=== PATIENT | male | born 1940 | race Caucasian/White ===

== ENCOUNTER 2020-07-18 15:23 | Emergency (ER) | payer MEDICARE, OTHER, SELFPAY ==
[2020-07-18 15:36] VITALS: BP 145/96; PULSE 63; RESP 17; TEMP 36.8; O2SAT 97
--- NOTE | 2020-07-18 16:08 | ED.EPISTAXIS ---
HPI - Epistaxis General Chief complaint: Epistaxis Stated complaint: NOSEBLEED Time Seen by Provider: 07/18/20 16:08 Source: patient Mode of arrival: wheelchair Limitations: no limitations History of Present Illness HPI Narrative: The patient is a 77 yo M with history of HTN, COPD, hyperlipidemia, prior CVA and previous hx of pulmonary embolism, who presents for evaluation of nosebleed. Patient states he has weekly nosebleeds that usually resolve after a few minutes, but today the nosebleed has lasted for several hours. He denies trauma to the face. He has been inserting some tissues with good improvement in the nosebleed but states when they removed it recurs. He denies lightheadedness or dizziness. He is on anticoagulation secondary to his history of pulmonary embolisms which is likely what causes his nosebleeds. He denies any vomiting. No difficulty breathing. He has never had follow-up with ENT for this. Related Data Allergies Allergy/AdvReac Type Severity Reaction Status Date / Time meperidine Allergy Severe SEVERE N/V Unverified 05/05/18 07:07 WHILE IN HOSP AND AFTER DISCHARGE AT HOME S/P GB KIP Inhibitors Allergy Unknown Verified 03/02/18 09:01 hydrocodone Allergy Unknown Verified 03/02/18 09:01 codeine AdvReac Mild N/V Unverified 05/05/18 07:07 Review of Systems Review of Systems: Narrative: CONSTITUTIONAL: Denies fever CARDIOVASCULAR: Denies chest pain HEENT: Epistaxis, denies rhinorrhea RESPIRATORY: Denies cough or dyspnea. GASTROINTESTINAL: Denies abdominal pain SKIN: Denies rash MUSCULOSKELETAL: Denies back pain NEUROLOGIC: Denies headache [facility] Social History Social History (Updated 07/18/20 @ 17:01 by Itzel Shultz MD) Alcohol intake: never Substance use: never Living arrangements: with family Gender identity (if verbalized by the patient): Male Exam Narrative: Exam Narrative: GENERAL: Awake, alert, conversant HEAD: Normocephalic, atraumatic. EYES: PERRLA and EOMI. ENT: Dried blood at the right nares, mild oozing, current epistaxis. No rhinorrhea. Mucous membranes moist. NECK: Supple. CHEST: No respiratory distress, breathing even and non labored HEART: Regular rate, sinus rhythm ABDOMEN:Non distended, non tender EXTREMITIES: Paralysis, RUE and RLE. No edema. SKIN: Pale, warm, dry, no rash. NEURO: Right sided paralysis. At baseline. Chronic atrophy/contractures lower extremities. Alert and oriented x3 Course Vital Signs Vital signs: Vital Signs Temperature 36.8 C 07/18/20 15:36 Pulse Rate 63 07/18/20 15:36 Respiratory Rate 17 07/18/20 15:36 Blood Pressure 145/96 H 07/18/20 15:36 Pulse Oximetry 97 07/18/20 15:36 Temperature 36.8 C 07/18/20 15:36 Pulse Rate 60 07/18/20 17:00 Respiratory Rate 16 07/18/20 17:00 Blood Pressure 137/87 07/18/20 17:00 Pulse Oximetry 100 07/18/20 17:00 Procedures Epistaxis Control right: Epistaxis Control Date: 07/18/20 Epistaxis Control Time: 18:21 Time Out Performed: Yes Nose Prepped With: oxymetazoline Direct Inspection: yes Clots Removed by: blowing nose and manually Cautery Used: none Device Inserted: nasal tampon Device Size: 5 Patient Tolerated Procedure: well and no complications MDM - Epistaxis MDM Narrative Medical decision making narrative: Patient presenting for evaluation of right nasal epistaxis, consistent with anterior bleed. No significant hemorrhage or evidence of posterior bleed. Patient had improvement with Afrin and a nasal clamp, but cannot tolerate the nasal clamp and after shared decision-making was open to Rhino Rocket placement. A 5.5 cm anterior Rhino Rocket was placed into the right naris with good improvement in bleeding. Patient tolerated this well. Dr. Portillo will be able to follow-up with the patient outpatient; he was contacted in the ED. No antibiotics prescribed per Dr. Portillo.
[2020-07-18 17:00] VITALS: BP 137/87; PULSE 60; RESP 16; O2SAT 100
[2020-07-18] MEDS: OXYMETAZOLINE HCL 0.05% NAS 15 ML BTL (*BKC) 1 SPRAY NASAL (17:15)
[2020-07-18 17:39] LABS: Basophils Percent Auto 0.4 % (0.2-1.2); Eosinophils Absolute Auto 0.2 K/mm3 (0-0.3); Eosinophils Percent Auto 1.7 % (0-4.4); Hematocrit 45.1 % (42.0-52.0); Hemoglobin 14.6 g/dL (14.0-18.0); Immature Granulocyte Absolute 0.08 K/mm3 (0.00-0.031); Immature Granulocyte Percent A 0.8 % (0-0.5); Lymphocytes Absolute Auto 1.17 K/mm3 (0.9-3.2); Lymphocytes Percent Auto 11.6 % (18.3-44.2); Mean Corpuscular HGB Conc 32.4 g/dl (32-36); Mean Corpuscular Hemoglobin 30.8 pg (26-34); Mean Corpuscular Volume 95.1 fl (80-100); Mean Platelet Volume 9.1 fl (7.4-10.4); Monocytes Absolute Auto 0.6 K/mm3 (0.1-0.6); Monocytes Percent Auto 5.7 % (2.6-8.5); Neutrophils Percent Auto 79.8 % (45.5-73.1); Platelet Count Result 184 k/mm3 (150-375); Red Blood Count 4.74 M/mm3 (4.6-6.20); Red Cell Distribution Width 13.2 % (11.5-14.5); White Blood Count 10.1 K/mm3 (4.5-10.0)
== END 2020-07-18 18:37 | disposition home or self-care (01) ==
PROVIDERS: Emergency Provider Emergency Medicine; PCP Family Medicine
DX: R04.0 Epistaxis (principal); I10 Essential (primary) hypertension; E78.5 Hyperlipidemia, unspecified; Z86.711 Personal history of pulmonary embolism; Z96.7 Presence of other bone and tendon implants; Z86.73 Personal history of transient ischemic attack (TIA), and cerebral infarction without residual deficits
CPT/HCPCS: 30901; 36415; 85025; 99283; A9270

== ENCOUNTER 2020-07-21 10:32 | Inpatient (IN) | payer MEDICARE, OTHER, SELFPAY ==
[2020-07-21] VITALS (10 sets, daily range): BP systolic 118–145; BP diastolic 67–78; PULSE 68–77; RESP 13–20; TEMP 36.3–36.6; O2SAT 95–99; BMI 26.4
--- NOTE | ~2020-07-21 | CT_ITS ---
EXAMINATION: CT abdomen pelvis wo con DATE: 07/21/2020 11:28 INDICATION: Left abdominal pain. TECHNIQUE: Computed tomography (CT) of the abdomen and pelvis was performed without intravenous contr ast. Automated exposure control and iterative reconstruction technique were employed. The dose-length product was 1265.78 mGy-cm. COMPARISON: CT abdomen and pelvis 09/28/2012, chest CT 04/11/18 FINDINGS: The visualized portions of the lung bases demonstrate emphysema. There is diffuse lung dise ase characterized by centrilobular nodules, tree-in-bud opacities, and relatively mild airspace and g roundglass opacities. The largest nodule measures 7 mm in right lower lobe, increased from 6 mm on . There is mild bronchiectasis bilaterally. No pleural effusion. The heart size is normal. There are coronary artery calcifications. No pericardial effusion. The liver and spleen are normal. There are changes of cholecystectomy. The pancreas and adrenal glands are normal. There is mild atrophy of the kidneys. There are cysts in the kidneys measuring up to 2.8 cm on the left. There is bilateral ne phrocalcinosis. There is a 3 mm stone in right kidney. The prostate is mildly enlarged. There is a ri ght inguinal hernia containing fat. There is diverticulosis of the colon without evidence of divertic ulitis. There are no dilated loops of bowel. The appendix is not visualized. There are no pathologica lly enlarged lymph nodes. There is no free intraperitoneal fluid. There is a total right hip arthropl asty. There is lumbar dextrocurvature and severe spondylosis. IMPRESSION: 1. Mild bilateral pneumonia, mildly worsened from 04/11/18, likely predominantly chronic. 2. Emphysema. Reviewed, dictated and finalized at location A.
--- NOTE | ~2020-07-21 | XR_ITS ---
EXAMINATION: XR barium swallow modified DATE: 07/22/2020 10:46 INDICATION: Chronic pneumonia. TECHNIQUE: The patient was given barium-containing material of multiple consistencies to swallow by t scott speech pathologist while I performed fluoroscopy. Fluoroscopy exposure time was 0.8 minutes. The n umber of fluoroscopy images saved to the PACS was 1. Dose-area product was 0.523 Gy-cm^2. FINDINGS: There was laryngeal penetration of thin liquids via straw. No aspiration. IMPRESSION: 1. Laryngeal penetration of thin liquids via straw. No aspiration. 2. Please refer to the speech therapy report for recommendations. Reviewed, dictated and finalized at location A.
--- NOTE | ~2020-07-21 | XR_ITS ---
EXAMINATION: XR barium swallow modified DATE: 07/24/2020 12:51 INDICATION: Dysphagia. TECHNIQUE: The patient was given barium-containing material of multiple consistencies to swallow by t he speech pathologist while I performed fluoroscopy. Fluoroscopy exposure time was 0.6 minutes. The n umber of fluoroscopy images saved to the PACS was 1. Dose-area product was 0.37 Gy-cm^2. FINDINGS: There is no laryngeal penetration or aspiration. IMPRESSION: 1. No laryngeal penetration or aspiration. 2. Please refer to the speech therapy report for recommendations. Reviewed, dictated and finalized at location A.
--- NOTE | ~2020-07-21 | CT_ITS ---
EXAMINATION: CT brain wo con DATE: 07/24/2020 09:48 INDICATION: Transient alteration of awareness. Dysphagia, lethargy, weakness and body numbness. TECHNIQUE: Computed tomography (CT) of the head was performed without intravenous contrast. Sagittal and coronal reconstructions were performed. The mA was adjusted according to patient size. Iterative reconstruction technique was employed. The dose-length product was 605.33 mGy-cm. COMPARISON: head CT dated 01/17/2018 FINDINGS: Stable appearance of a large region of encephalomalacia in the left frontal lobe consistent with public safety telecommunicator jerson infarct in the left anterior cerebral artery vascular distribution. No acute intracranial hemorrh age, acute infarction or abnormal extra axial fluid collection. There is additional mild scattered wh ite matter hypoattenuation consistent with chronic small vessel ischemic disease. Symmetric prominen ce of the sulci and subarachnoid spaces overlying the convexities consistent with mild age-appropriat e diffuse cerebral volume loss. Ventricles are normal and symmetric. No mass/mass effect. Changes of bilateral intraocular lens replacement. The orbitsand paranasal sinuses are normal. Hypopneumatized l eft mastoid and status post right mastoidectomy. Intracranial calcified cerebral atherosclerosis is n oted. Arachnoid granulation at the right transverse sinus. IMPRESSION: 1. Stable appearance of a large chronic left frontal lobe infarct. No acute intracranial process. 2. Chronic age-related findings including mild diffuse volume loss and mild scattered white matter hy poattenuation consistent with chronic small vessel ischemic disease. Reviewed, dictated and finalized at location A. IMPRESSION: 1. Stable appearance of a large chronic left frontal lobe infarct. No acute int racranial process. 2. Chronic age-related findings including mild diffuse volume loss and mild sca ttered white matter hypoattenuation consistent with chronic small vessel ischem ic disease.
[2020-07-21 10:52] LABS: Basophils Percent Auto 0.2 % (0.2-1.2); Eosinophils Absolute Auto 0.2 K/mm3 (0-0.3); Hematocrit 33.7 % (42.0-52.0); Hemoglobin 10.6 g/dL (14.0-18.0); Immature Granulocyte Absolute 0.05 K/mm3 (0.00-0.031); Immature Granulocyte Percent A 0.4 % (0-0.5); Immature Platelet Fraction Pct 1.4 % (0.9-11.2); Lymphocytes Absolute Auto 0.96 K/mm3 (0.9-3.2); Mean Corpuscular HGB Conc 31.5 g/dl (32-36); Mean Corpuscular Hemoglobin 31.1 pg (26-34); Mean Corpuscular Volume 98.8 fl (80-100); Monocytes Absolute Auto 0.6 K/mm3 (0.1-0.6); Monocytes Percent Auto 5.4 % (2.6-8.5); Platelet Count Result 145 k/mm3 (150-375); Red Blood Count 3.41 M/mm3 (4.6-6.20); Red Cell Distribution Width 14.2 % (11.5-14.5)
--- NOTE | 2020-07-21 10:55 | ED.GIBLEED ---
HPI - GI Bleed General Chief complaint: GI Bleed Stated complaint: dark stools x3 days Time Seen by Provider: 07/21/20 10:39 Source: patient and family Mode of arrival: EMS Limitations: no limitations History of Present Illness HPI Narrative: This is a 80 year old male that presents to the ER for black stools present over the last couple of days. Was seen here 3 days ago for a nosebleed and has rhino rocket in place. Is supposed to be seen by ENT in 2 days for this for cautery. Reports over the last couple of days he has noted dark stools, which have also been more frequent and loose. He dose not feel like he is having any continuing bleeding from his nose. Reports some mild left sided abdominal pain. Reports history of bleeding ulcers in the past as well as hemorrhoids. Reports generalized weakness. He is on Aspirin and Plavix currently for history of CVA and [place]. Denies fever, chest pain or shortness of breath. Related Data Home Medications Medication Instructions Recorded Confirmed Aspir-81 07/21/20 Calcium + Vitamin D 07/21/20 albuterol mcg INHALATION 07/21/20 allopurinol 100 mg PO DAILY 07/21/20 alogliptin 12.5 mg PO DAILY 07/21/20 amlodipine 07/21/20 atenolol 50 mg PO DAILY 07/21/20 atorvastatin 07/21/20 baclofen 10 mg PO TID 07/21/20 budesonide-formoterol INHALATION 07/21/20 clopidogrel 07/21/20 clotrimazole applic TOPICAL 07/21/20 diclofenac sodium 07/21/20 docusate sodium PO 07/21/20 fluticasone propionate INTRANASAL 07/21/20 folic acid 07/21/20 gabapentin 07/21/20 golimumab mg SUBCUT 07/21/20 guaifenesin 07/21/20 hydrocodone-acetaminophen 07/21/20 loratadine 07/21/20 omeprazole 20 mg PO DAILY 07/21/20 Allergies Allergy/AdvReac Type Severity Reaction Status Date / Time meperidine Allergy Severe SEVERE N/V Verified 07/21/20 11:09 WHILE IN HOSP AND AFTER DISCHARGE AT HOME S/P GB KIP Inhibitors Allergy Unknown Unknown Verified 07/21/20 11:09 hydrocodone Allergy Unknown Unknown Verified 07/21/20 11:09 codeine AdvReac Mild N/V Verified 07/21/20 11:09 Review of Systems Review of Systems: Narrative: CONSTITUTIONAL: Denies fever CARDIOVASCULAR: Denies chest pain, or edema. RESPIRATORY: Denies dyspnea. GASTROINTESTINAL: Reports abdominal pain, and diarrhea. Denies nausea and vomiting. All systems reviewed & are unremarkable except as noted in HPI and below PMFSH Past Medical History Medical History (Updated 07/21/20 @ 13:17 by Radha Chaney PA-C) Chronic kidney disease COPD (chronic obstructive pulmonary disease) CVA (cerebral vascular accident) Hyperlipidemia Hypertension Pulmonary embolism Type II diabetes mellitus Social History Social History (Updated 07/18/20 @ 17:01 by Itzel Shultz MD) Alcohol intake: never Substance use: never Gender identity (if verbalized by the patient): Male Exam Narrative: Exam Narrative: GENERAL: Elderly, well-nourished, and in no acute distress. HEAD: Normocephalic, atraumatic. EYES: EOMI. ENT: Right nare with rhino rocket in place. No active oozing noted. No blood noted in the oropharynx. Mucous membranes dry. Oropharynx without tonsillar hypertrophy exudate or other lesions. CHEST: Clear to auscultation. No respiratory distress. No wheezes rales or rhonchi HEART: Regular rate and rhythm. No murmur heard. Normal peripheral pulses. ABDOMEN: Soft, nondistended, normal active bowel sounds. Mild tenderness to palpation throughout the left side of the abdomen, without guarding EXTREMITIES: No edema. SKIN: Warm, dry, no rash. NEURO: Right sided weakness which is result of previous CVA. Alert and oriented x3. PSYCH: Normal mood and affect Course Consultations Consultation #1: Spoke with Dr. Garcia about patient and work-up who will consult. Date: 07/21/20 Time: 13:00 Consultation #2: Spoke with hospitalist about patient and work-up who accepts admission Date: 07/21/20 Time: 13:05 Vital Si
[2020-07-21 11:01] LABS: Alanine Aminotransferase 355 U/L (4-50); Albumin Level 3.7 g/dL (3.5-5.1); Alkaline Phosphatase 357 U/L (38-126); Anion Gap 11 mmol/L (8-16); Aspartate Amino Transferase 350 U/L (17-59); Bilirubin,Total 4.2 mg/dL (0.2-1.3); Blood Urea Nitrogen 37 mg/dL (9-20); Calcium 8.9 mg/dL (8.4-10.2); Carbon Dioxide 24 mmol/L (22-30); Chloride 105 mmol/L (98-107); Estimated CRCL calculation 18 ml/min; Estimated Glomerular Filt Rate 21; Glucose 301 mg/dL (75-110); Potassium 4.7 mmol/L (3.4-5.0); Sodium 140 mmol/L (137-145)
[2020-07-21 11:03] LABS: INR 1.1; Prothrombin Time 14.5 Seconds (11.1-14.7)
[2020-07-21 11:05] LABS: Partial Thromboplastin Time 32.3 SECONDS (22.3-36.8)
--- NOTE | 2020-07-21 11:23 | PC.NURSE ---
Pt to CT scan via stretcher.
[2020-07-21 11:25] LABS: Lipase 44 U/L (23-300)
[2020-07-21] MEDS: PANTOPRAZOLE SODIUM IV 40 MG VIAL 80 MG IV PUSH (11:28)
[2020-07-21] MEDS: SODIUM CHLORIDE 0.9% IV 500 ML 999 ML IV CONT (11:29)
--- NOTE | 2020-07-21 13:15 | PM.IMHP ---
H&P: HPI History of Present Illness Date/Time: 07/21/20 13:15 Chief Complaint: Dark stools. Narrative: This is an 80-year-old male with history bleeding ulcers, stroke, coronary artery disease, type 2 diabetes mellitus, COPD, hypertension, chronic kidney disease, anemia, and rheumatoid arthritis who presented to the emergency department earlier today via EMS from home for evaluation of dark stools. He was seen in the emergency department just 3 days ago with epistaxis and had a rhino rocket placed. The following day he noticed that his stools were dark and he came in today after passing 3 such stools. In the emergency department his hemoglobin was noted to be 4 grams lower than what it was just 3 days ago and he is being admitted in this setting. He has no current complaints and denies epigastric and abdominal discomfort, abdominal distention, nausea, and GERD symptoms. He also denies lightheadedness, dizziness, near syncope, chest pain, racing heart, and shortness of breath. He is on dual anti-platelet therapy, aspirin and clopidogrel, and has been since he had stents placed about 13 years ago. No NSAID use. No significant caffeine or alcohol intake. Of note his LFTs were quite elevated on labs today and he and his indicate that this has been noted on previous labs done at the [facility] and he has several upcoming appointments at [facility] in the next week or so for evaluation. Review of Systems Review of Systems: Narrative: Twelve systems were reviewed with pertinent positives and negatives as per HPI. Weight has remained stable. No fever, chills, or sweats. No recent cold or flu symptoms. He had a stroke about 8 years ago after an upper endoscopy and he is a bit nervous about having another. 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 He can ambulate to the bathroom with a walker but is otherwise in a wheelchair. States fasting glucose is usually around 200. Denies blurry vision, polydipsia, and polyuria. No significant neuropathy symptoms. Regarding his nose bleeds, he typically has 1 each week, all from the right naris. Denies cough, shortness of breath, dysphagia, and concerns for aspiration. Except as documented, all other systems were reviewed and are negative. [facility] Past Medical History Medical History (Updated 07/21/20 @ 14:48 by Indu Armendariz PA-C) Anemia Cerebrovascular accident (09/2012) Residual right hemiparesis. Chronic kidney disease Chronic obstructive pulmonary disease Coronary artery disease History NM and stents x4. Diverticulitis Epistaxis GI bleed Hyperlipidemia Hypertension Osteoarthritis Pulmonary embolism Rheumatoid arthritis Type II diabetes mellitus Surgical History Surgical History (Updated 07/21/20 @ 14:37 by Indu Armendariz PA-C) History of appendectomy History of bilateral cataract extraction History of cardiac catheterization Stent x4. History of cholecystectomy History of left inguinal hernia repair History of left knee replacement History of mastoidectomy History of myringoplasty History of right hip replacement Family History Family History (Updated 07/21/20 @ 14:38 by Indu Armendariz PA-C) Father Acute myocardial infarction Mother Hypertension Sibling Pancreatic cancer Social History Social History (Updated 07/21/20 @ 15:04 by Indu Armendariz PA-C) Social History: The patient is and lives with his in [place]. Mainly wheelchair-bound but does use a walker to get up to the bathroom. [employer] . 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 Smoked 1.5 packs of cigarettes a day for about 15 years and quit in 1978. No alcohol or illicit substance abuse. He designates his , Hu Sofia, as his surrogate decision maker and he wishes to be a full code. Meds Home Medications and Allergies Home Medications Medication Instructions Recorded Co
[2020-07-21 13:21] LABS: Glucose Point of Care 218 mg/dl (65-105)
--- NOTE | 2020-07-21 14:16 | PC.NURSE ---
This patient, Arturo Sofia, was admitted to [facility] Surg Room 324-01. Patient/family oriented to hospital policies and general routines including ID bracelet, bed and alarms, visiting hours, pain management, procedures, bathroom and other care routines, personal items, smoking policy, room service/diet, and visiting hours. Information on how to activate the Rapid Response Team has been discussed. Patient/Family are encouraged to report perceived risks to care and to ask questions if they do not understand what they are told or what they should do.
[2020-07-21 16:09] LABS: Hematocrit 41.9 % (42.0-52.0); Hemoglobin 13.6 g/dL (14.0-18.0)
[2020-07-21 16:17] LABS: Acetaminophen < 10 ug/mL (10-30); Creatine Kinase 36 U/L (55-170)
[2020-07-21 16:24] LABS: Lactate Dehydrogenase 674 U/L (313-618)
[2020-07-21 16:25] LABS: Transferrin 176 mg/dL (206-381)
[2020-07-21] MEDS: BACLOFEN 10 MG TABLET PO (16:43)
[2020-07-21 16:53] LABS: Iron 26 ug/dL (49-181)
[2020-07-21 17:03] LABS: Percent Iron Saturation 10 % (20-50)
[2020-07-21 17:29] LABS: Hepatitis B Surface Antigen Negative (Negative)
[2020-07-21 17:34] LABS: Glucose Point of Care 102 mg/dl (65-105)
[2020-07-21 17:35] LABS: HAV RESULT Negative (Negative); Hepatitis B Core IgM Result Negative (Negative)
[2020-07-21 17:47] LABS: Hepatitis C Virus Antibody Negative (Negative)
[2020-07-21 18:01] LABS: Folic Acid > 20.0 ng/mL (2.76->20)
[2020-07-21 19:51] LABS: Hematocrit 40.2 % (42.0-52.0); Hemoglobin 12.9 g/dL (14.0-18.0)
[2020-07-21] MEDS: PANTOPRAZOLE SODIUM IV 40 MG VIAL IV PUSH (20:22)
[2020-07-21] MEDS: GABAPENTIN 100 MG CAPSULE PO (20:22)
[2020-07-21] MEDS: MICONAZOLE NITRATE 2% CREAM 30 GM TUBE 1 APPLIC TOPICAL (20:55)
[2020-07-21 21:28] LABS: Glucose Point of Care 137 mg/dl (65-105)
[2020-07-22] VITALS (10 sets, daily range): BP systolic 101–164; BP diastolic 66–86; PULSE 62–88; RESP 18–20; TEMP 36.3–36.4; O2SAT 94–98
[2020-07-22 01:26] LABS: Hematocrit 39.1 % (42.0-52.0); Hemoglobin 12.7 g/dL (14.0-18.0)
[2020-07-22 06:12] LABS: Hematocrit 40.1 % (42.0-52.0); Hemoglobin 12.9 g/dL (14.0-18.0); Mean Corpuscular HGB Conc 32.2 g/dl (32-36); Mean Corpuscular Hemoglobin 31.1 pg (26-34); Mean Corpuscular Volume 96.6 fl (80-100); Mean Platelet Volume 9.7 fl (7.4-10.4); Platelet Count Result 154 k/mm3 (150-375); Red Blood Count 4.15 M/mm3 (4.6-6.20); Red Cell Distribution Width 14.1 % (11.5-14.5); White Blood Count 10.6 K/mm3 (4.5-10.0)
[2020-07-22 06:27] LABS: Alanine Aminotransferase 314 U/L (4-50); Albumin Level 3.3 g/dL (3.5-5.1); Alkaline Phosphatase 357 U/L (38-126); Anion Gap 10 mmol/L (8-16); Aspartate Amino Transferase 257 U/L (17-59); Bilirubin,Total 2.7 mg/dL (0.2-1.3); Blood Urea Nitrogen 32 mg/dL (9-20); Calcium 8.4 mg/dL (8.4-10.2); Carbon Dioxide 21 mmol/L (22-30); Chloride 110 mmol/L (98-107); Estimated CRCL calculation 22 ml/min; Estimated Glomerular Filt Rate 26; Glucose 147 mg/dL (75-110); Potassium 4.4 mmol/L (3.4-5.0); Sodium 141 mmol/L (137-145)
[2020-07-22] MEDS: BACLOFEN 10 MG TABLET PO ×3 (08:49→18:30)
[2020-07-22] MEDS: FOLIC ACID 1 MG TABLET PO (08:50)
[2020-07-22] MEDS: FLUTICASONE PROPIONATE 0.05% NA SPR 16 GM BTL (*BKC) 1 SPRAY NASAL (08:50)
[2020-07-22] MEDS: atenoloL 50 MG TABLET PO (08:50)
[2020-07-22] MEDS: amLODIPine BESYLATE 2.5 MG TABLET PO (08:50)
[2020-07-22] MEDS: MICONAZOLE NITRATE 2% CREAM 30 GM TUBE 1 APPLIC TOPICAL ×2 (08:51→20:18)
[2020-07-22] MEDS: LORATADINE 10 MG TABLET PO (08:51)
[2020-07-22] MEDS: PANTOPRAZOLE SODIUM IV 40 MG VIAL IV PUSH ×2 (08:51→20:19)
[2020-07-22 09:29] LABS: Glucose Point of Care 155 mg/dl (65-105)
--- NOTE | 2020-07-22 11:32 | WPDGICN ---
Assessment and Plan Assessment and plan (1) Melena: Code(s): K92.1 - Melena Status: Acute Assessment and Plan: most likely from epistaxis but patient is worried because years ago he says that had bleeding ulcer continue with ppi and will do EGD in the morning to assess if melena is coming from gi tract (2) Epistaxis: Code(s): R04.0 - Epistaxis Status: Acute Assessment and Plan: controlled now (3) Elevated LFTs: Code(s): R79.89 - Other specified abnormal findings of blood chemistry Status: Acute Assessment and Plan: patient mentioned that work up in process at the [facility], in fact he has more appointment coming up CT scan reviewed with normal spleen and liver (4) Chronic kidney disease, stage 3, mod decreased GFR: Code(s): N18.30 - Chronic kidney disease, stage 3 unspecified Status: Acute Assessment and Plan: continue to monitor (5) Chronic obstructive pulmonary disease: Code(s): J44.9 - Chronic obstructive pulmonary disease, unspecified Status: Chronic (6) Cerebrovascular accident: Onset Date: 09/2012 Code(s): I63.9 - Cerebral infarction, unspecified Status: Chronic Assessment and Plan: chronic right weakness GI Consult Note Consult date/time: 07/22/20 11:32 Reason for consult: melena, epistaxis HPI: Arturo Sofia is a 80 year old male with history of gastric ulcer ~ 8 years ago (patient says that had EGD by Dr Curtis), stroke on plavix with right sided hemiparesis, coronary artery disease, type 2 diabetes mellitus, COPD, hypertension, chronic kidney disease stage 3, anemia, rheumatoid arthritis and elevated liver enzymes who came to the emergency department earlier today via EMS from home for evaluation of dark stools. He also has intermittent spontaneous epistaxis, in fact was here ~ 4 days ago and had a rhino rocket placed but the following day he noticed that his stools were dark and got concerned because had more melena, he says that last time had at least 3 hours of epistaxis. Denies epigastric pain, nausea. He is on plavix and aspirin. Had CT scan, reviewed Mild bilateral pneumonia, mildly worsened from 04/11/18, likely predominantly chronic, emphysema. Review of Systems Constitutional: Constitutional: Denies chills Eyes: Eyes: Denies blurry vision ENT: Reports Normal hearing present Comments: epistaxis Cardiovascular: Cardiovascular: Denies chest pain Respiratory: Respiratory: Denies dyspnea Gastrointestinal: Gastrointestinal: Denies abdominal pain and Reports melena Genitourinary: Genitourinary: Denies dysuria Musculoskeletal: Musculoskeletal: Denies neck pain Neurologic: Comments: right sided weakness- chronic Psychiatric: Psychiatric: Reports no additional psychiatric complaints [facility] Past Medical History Medical History (Updated 07/22/20 @ 11:40 by Tian Jerome MD) Anemia Cerebrovascular accident (09/2012) Residual right hemiparesis. Chronic kidney disease Chronic kidney disease, stage 3, mod decreased GFR Chronic obstructive pulmonary disease Coronary artery disease History CT and stents x4. Diverticulitis Epistaxis GI bleed Hyperlipidemia Hypertension Melena Osteoarthritis Pulmonary embolism Rheumatoid arthritis Type II diabetes mellitus Surgical History Surgical History (Updated 07/21/20 @ 14:37 by Indu Armendariz PA-C) History of appendectomy History of bilateral cataract extraction History of cardiac catheterization Stent x4. History of cholecystectomy History of left inguinal hernia repair History of left knee replacement History of mastoidectomy History of myringoplasty History of right hip replacement Family History Family History (Updated 07/21/20 @ 14:38 by Indu Armendariz PA-C) Father Acute myocardial infarction Mother Hypertension Sibling Pancreatic cancer Social History Social History (Updated 07/21/20 @
--- NOTE | 2020-07-22 11:33 | PCSTNOTE ---
Please refer to the Modified Barium Swallow Evaluation in the EMR.
[2020-07-22 12:16] LABS: Glucose Point of Care 193 mg/dl (65-105)
--- NOTE | 2020-07-22 13:44 | PM.IMPN ---
Progress Note: A&P Assessment and Plan (1) GI bleed: Code(s): K92.2 - Gastrointestinal hemorrhage, unspecified Status: Acute Assessment and Plan: Patient reports dark stools for the past 3 days and has a history of bleeding ulcers in 2012. IV Protonix b.i.d. Hold aspirin, clopidogrel, and diclofenac. watch hb Dr. Jerome (Gastroenterology) has been consulted keep npo from [place] (2) Elevated LFTs: Code(s): R79.89 - Other specified abnormal findings of blood chemistry Status: Acute Assessment and Plan: Patient has been told this in the past and has several upcoming appointments at the [facility]. No acute issues on CT of the abdomen and pelvis. (3) Epistaxis: Code(s): R04.0 - Epistaxis Status: Acute Assessment and Plan: Rhino rocket currently in the right naris. pt will need ent consult for removal (4) Normocytic anemia: Code(s): D64.9 - Anemia, unspecified Status: Acute Assessment and Plan: Hemoglobin to be watched (5) Type II diabetes mellitus: Code(s): E11.9 - Type 2 diabetes mellitus without complications Status: Chronic Assessment and Plan: Initiate sliding scale insulin, Accu-Cheks, and hypoglycemic protocol. Check hemoglobin A1c. (6) Chronic kidney disease: Code(s): N18.9 - Chronic kidney disease, unspecified Status: Chronic Assessment and Plan: Patient has chronic kidney disease. continue to watch, creat is 2.4 (7) Hypertension: Code(s): I10 - Essential (primary) hypertension Status: Chronic Assessment and Plan: Blood pressures were reviewed and they are stable. Continue antihypertensives and monitor blood pressures daily. (8) Chronic obstructive pulmonary disease: Code(s): J44.9 - Chronic obstructive pulmonary disease, unspecified Status: Chronic Assessment and Plan: . Continue home respiratory regimen. (9) Coronary artery disease: Code(s): I25.10 - Atherosclerotic heart disease of [place] coronary artery without angina pectoris Status: Chronic Assessment and Plan: Patient with history of [place] and stents 13 years ago (per patient). Aspirin and clopidogrel on hold given GI bleed. Statin on hold given transaminitis. Continue beta-maurilio. 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 Initiate fall precautions. Aspirin and Plavix on hold given GI bleed. (11) Rheumatoid arthritis: Code(s): M06.9 - Rheumatoid arthritis, unspecified Status: Chronic Assessment and Plan: Golimumab on hold given transaminitis. Subjective Date/time seen: 07/22/20 13:44 Interval history: 80-year-old male with history bleeding ulcers, stroke, coronary artery disease, type 2 diabetes mellitus, COPD, hypertension, chronic kidney disease, anemia, and rheumatoid arthritis who presented to the emergency department earlier today via EMS from home for evaluation of dark stools. Pt for scope tomorrow. Seen by GI MD. Pt has history of ulcer and is on Plavix blood thinner. PT has history of 4 stents, old stroke and DU, DM, and HTN. pt has had a recent nose bleed. Review of Systems Review of Systems: All systems reviewed & are unremarkable except as noted in HPI and below Exam Narrative: Exam Narrative: General: Well-developed elderly male. with rhinorocket Respiratory: Lungs are clear to auscultation bilaterally. Cardiovascular: Regular rate and rhythm with S1-S2. Gastrointestinal: Abdomen is soft, protuberant, and nontender with positive bowel sounds. Skin: Warm and dry. Scattered bruising on the upper extremities, mainly on the right. Extremities: No cyanosis, clubbing, or edema. Radial and pedal pulses intact. N
[2020-07-22 17:15] LABS: Glucose Point of Care 175 mg/dl (65-105)
[2020-07-22] MEDS: GABAPENTIN 100 MG CAPSULE PO (20:06)
[2020-07-22 21:50] LABS: Glucose Point of Care 154 mg/dl (65-105)
[2020-07-23] VITALS (13 sets, daily range): BP systolic 117–170; BP diastolic 62–77; PULSE 59–69; RESP 15–22; TEMP 36–36.6; O2SAT 97–100
[2020-07-23 08:24] LABS: Glucose Point of Care 144 mg/dl (65-105)
[2020-07-23] MEDS: LORATADINE 10 MG TABLET PO (08:30)
[2020-07-23] MEDS: PANTOPRAZOLE SODIUM IV 40 MG VIAL IV PUSH (08:30)
[2020-07-23] MEDS: DOCUSATE SODIUM 100 MG CAPSULE PO (08:30)
[2020-07-23] MEDS: amLODIPine BESYLATE 2.5 MG TABLET PO (08:30)
[2020-07-23] MEDS: FOLIC ACID 1 MG TABLET PO (08:30)
[2020-07-23] MEDS: allopurinoL 100 MG TABLET PO (08:30)
[2020-07-23] MEDS: atenoloL 50 MG TABLET PO (08:31)
[2020-07-23] MEDS: BACLOFEN 10 MG TABLET PO ×3 (08:31→17:33)
[2020-07-23] MEDS: FLUTICASONE PROPIONATE 0.05% NA SPR 16 GM BTL (*BKC) 1 SPRAY NASAL (08:32)
[2020-07-23] MEDS: MICONAZOLE NITRATE 2% CREAM 30 GM TUBE 1 APPLIC TOPICAL ×2 (08:32→20:22)
--- NOTE | 2020-07-23 09:49 | WPDCN ---
Assessment and Plan Assessment and plan (1) Right-sided epistaxis: Code(s): R04.0 - Epistaxis Status: Acute Assessment and Plan: [place] spray 4-6 times when awake on the right side. Please have the patient follow up when discharged, within a week is adequate. Call with any questions/concerns. [phone] HPI Data of Consult Date/Time: 07/23/20 09:49 Requesting Physician: Emmett Morelos MD Primary Care Provider: [facility] Consult Narrative Narrative: Arturo Sofia is a 80 year old male who is anticoagulated. Presents with report of right sided epistaxis. Rhinorocket placed 4 days ago. Review of Systems Constitutional: Constitutional: Denies fatigue, Denies fever(s) and Denies lethargy Eyes: Eyes: Denies blurry vision and Denies change in vision ENT: Reports as per HPI Cardiovascular: Cardiovascular: Denies chest pain Respiratory: Respiratory: Denies cough Endocrine: Endocrine: Denies fatigue Hematologic/Lymphatic: Hematologic/Lymphatic: Denies easy bleeding, Denies easy bruising and Denies lymphadenopathy Allergic/Immunologic: Allergic/Immunologic: Denies seasonal rhinorrhea [facility] Past Medical History Medical History (Updated 07/23/20 @ 09:51 by Medhat Portillo MD) Anemia Cerebrovascular accident (09/2012) Residual right hemiparesis. Chronic kidney disease Chronic kidney disease, stage 3, mod decreased GFR Chronic obstructive pulmonary disease Coronary artery disease History [place] and stents x4. Diverticulitis Epistaxis GI bleed Hyperlipidemia Hypertension Melena Osteoarthritis Pulmonary embolism Rheumatoid arthritis Type II diabetes mellitus Surgical History Surgical History (Updated 07/21/20 @ 14:37 by Indu Armendariz PA-C) History of appendectomy History of bilateral cataract extraction History of cardiac catheterization Stent x4. History of cholecystectomy History of left inguinal hernia repair History of left knee replacement History of mastoidectomy History of myringoplasty History of right hip replacement Family History Family History (Updated 07/21/20 @ 14:38 by Indu Armendariz PA-C) Father Acute myocardial infarction Mother Hypertension Sibling Pancreatic cancer Social History Social History (Updated 07/21/20 @ 15:04 by Indu Armendariz PA-C) Social History: The patient is and lives with his in [place]. Mainly wheelchair-bound but does use a walker to get up to the bathroom. [employer] . 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 Smoked 1.5 packs of cigarettes a day for about 15 years and quit in 1978. No alcohol or illicit substance abuse. He designates his , Hu Sofia, as his surrogate decision maker and he wishes to be a full code. Meds Home Medications and Allergies Home Medications Medication Instructions Recorded Confirmed Type Aspir-81 81 mg PO DAILY 07/21/20 07/21/20 History Calcium + Vitamin D 1 tablet PO BID 07/21/20 07/21/20 History albuterol 90 mcg INHALATION QID PRN 07/21/20 07/21/20 History allopurinol 100 mg PO DAILY 07/21/20 07/21/20 History alogliptin 12.5 mg PO DAILY 07/21/20 07/21/20 History amlodipine 2.5 mg PO DAILY 07/21/20 07/21/20 History atenolol 50 mg PO DAILY 07/21/20 07/21/20 History atorvastatin 40 mg PO HS 07/21/20 07/21/20 History baclofen 10 mg PO TID 07/21/20 07/21/20 History budesonide-formoterol 2 puff INHALATION BID 07/21/20 07/21/20 History clopidogrel 75 mg PO DAILY 07/21/20 07/21/20 History clotrimazole 1 applic TOPICAL BID 07/21/20 07/21/20 History diclofenac sodium 4 g TOPICAL QID 07/21/20 07/21/20 History docusate sodium 100 mg PO DAILY 07/21/20 07/21/20 History fluticasone propionate 1 spray INTRANASAL DAILY 07/21/20 07/21/20 History folic acid 1 mg PO DAILY 07/21/20 07/21/20 History gabapentin 100 mg PO HS 07/21/20 07/21/20 History golimumab 50 mg SUBCUT MONTHLY 07/21/20 07/21/20 History guaifenesin 2 tbsp PO QID PRN
--- NOTE | 2020-07-23 09:53 | WPDPROCEDUR ---
Procedures Epistaxis Control Time out performed: Yes Nostril: right Nose prepped with: lidocaine and oxymetazoline Direct inspection: yes Clots removed by: suction Cautery used: silver nitrate Device inserted: hemostatic dressing (surgicel) Patient tolerated procedure: well Epistaxis Comment: small vessel visualized on right, cauterized, surgicel placed (small piece) no bleeding
--- NOTE | 2020-07-23 11:31 | PM.IMPN ---
Progress Note: A&P Assessment and Plan (1) GI bleed: Code(s): K92.2 - Gastrointestinal hemorrhage, unspecified Status: Acute Assessment and Plan: Patient reports dark stools for the past 3 days and has a history of bleeding ulcers in 2012. IV Protonix b.i.d. Hold aspirin, clopidogrel, and diclofenac. watch hb Dr. Jerome (Gastroenterology) has been consulted keep npo [place] for scope today (2) Elevated LFTs: Code(s): R79.89 - Other specified abnormal findings of blood chemistry Status: Acute Assessment and Plan: Patient has been told this in the past and has several upcoming appointments at the [facility]. No acute issues on CT of the abdomen and pelvis. (3) Epistaxis: Code(s): R04.0 - Epistaxis Status: Acute Assessment and Plan: Rhino rocket currently in the right naris. pt will need ent consult for removal (4) Normocytic anemia: Code(s): D64.9 - Anemia, unspecified Status: Acute Assessment and Plan: Hemoglobin to be watched (5) Type II diabetes mellitus: Code(s): E11.9 - Type 2 diabetes mellitus without complications Status: Chronic Assessment and Plan: Initiate sliding scale insulin, Accu-Cheks, and hypoglycemic protocol. Check hemoglobin A1c. (6) Chronic kidney disease: Code(s): N18.9 - Chronic kidney disease, unspecified Status: Chronic Assessment and Plan: Patient has chronic kidney disease. continue to watch, creat is 2.4 (7) Hypertension: Code(s): I10 - Essential (primary) hypertension Status: Chronic Assessment and Plan: Blood pressures were reviewed and they are stable. Continue antihypertensives and monitor blood pressures daily. (8) Chronic obstructive pulmonary disease: Code(s): J44.9 - Chronic obstructive pulmonary disease, unspecified Status: Chronic Assessment and Plan: . Continue home respiratory regimen. (9) Coronary artery disease: Code(s): I25.10 - Atherosclerotic heart disease of [place] coronary artery without angina pectoris Status: Chronic Assessment and Plan: Patient with history of [place] and stents 13 years ago (per patient). Aspirin and clopidogrel on hold given GI bleed. Statin on hold given transaminitis. Continue beta-maurilio. 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 Initiate fall precautions. Aspirin and Plavix on hold given GI bleed. (11) Rheumatoid arthritis: Code(s): M06.9 - Rheumatoid arthritis, unspecified Status: Chronic Assessment and Plan: Golimumab on hold given transaminitis. Subjective Date/time seen: 07/23/20 11:31 Interval history: 80-year-old male with history bleeding ulcers, stroke, coronary artery disease, type 2 diabetes mellitus, COPD, hypertension, chronic kidney disease, anemia, and rheumatoid arthritis who presented to the emergency department earlier today via EMS from home for evaluation of dark stools. Pt for scope today. Seen by GI MD. Pt has history of ulcer and is on Plavix blood thinner. Pt has history of 4 stents, old stroke and DU, DM, and HTN. pt has had a recent nose bleed awaiting removal of rhino rocket in nares. Review of Systems Review of Systems: All systems reviewed & are unremarkable except as noted in HPI and below Exam Narrative: Exam Narrative: General: Well-developed elderly male. with rhinorocket Respiratory: Lungs are clear to auscultation bilaterally. Cardiovascular: Regular rate and rhythm with S1-S2. Gastrointestinal: Abdomen is soft, nontender with positive bowel sounds. Skin: Warm and dry. Scattered bruising on the upper extremities, mainly on the right. Extremities: No cyanosis, clubbing, or
[2020-07-23] MEDS: LACTATED RINGERS 1,000 ML 150 ML IV CONT (12:49)
[2020-07-23 12:53] LABS: Glucose Point of Care 147 mg/dl (65-105)
--- NOTE | 2020-07-23 13:28 | WPDANESEPPF ---
Anes - Initial Pre Proc Eval Procedure: Operation Date: 07/23/20 14:30 Proposed Procedures p Esophagogastroduodenoscopy - Tian Jerome MD Date/Time: 07/23/20 13:28 Surgeon: Emmett Morelos MD Pre Op Diagnosis: GI bleed/transaminitis Patient Data Age: 80 Gender: M Height: 5 ft 9 in Weight: 84.4 kg Last Vital Signs Temp 97.4 F L 07/23/20 12:47 Pulse 68 07/23/20 12:47 Resp 20 07/23/20 12:47 BP 170/72 H 07/23/20 12:47 Pulse Ox 97 07/23/20 12:47 Allergies Allergy/AdvReac Type Severity Reaction Status Date / Time meperidine Allergy Severe SEVERE N/V Verified 07/23/20 12:45 WHILE IN HOSP AND AFTER DISCHARGE AT HOME S/P GB KIP Inhibitors Allergy Unknown Unknown Verified 07/23/20 12:45 codeine AdvReac Mild N/V Verified 07/23/20 12:45 Home Medications Medication Instructions Recorded Confirmed Type Aspir-81 81 mg PO DAILY 07/21/20 07/21/20 History Calcium + Vitamin D 1 tablet PO BID 07/21/20 07/21/20 History albuterol 90 mcg INHALATION QID PRN 07/21/20 07/21/20 History allopurinol 100 mg PO DAILY 07/21/20 07/21/20 History alogliptin 12.5 mg PO DAILY 07/21/20 07/21/20 History amlodipine 2.5 mg PO DAILY 07/21/20 07/21/20 History atenolol 50 mg PO DAILY 07/21/20 07/21/20 History atorvastatin 40 mg PO HS 07/21/20 07/21/20 History baclofen 10 mg PO TID 07/21/20 07/21/20 History budesonide-formoterol 2 puff INHALATION BID 07/21/20 07/21/20 History clopidogrel 75 mg PO DAILY 07/21/20 07/21/20 History clotrimazole 1 applic TOPICAL BID 07/21/20 07/21/20 History diclofenac sodium 4 g TOPICAL QID 07/21/20 07/21/20 History docusate sodium 100 mg PO DAILY 07/21/20 07/21/20 History fluticasone propionate 1 spray INTRANASAL DAILY 07/21/20 07/21/20 History folic acid 1 mg PO DAILY 07/21/20 07/21/20 History gabapentin 100 mg PO HS 07/21/20 07/21/20 History golimumab 50 mg SUBCUT MONTHLY 07/21/20 07/21/20 History guaifenesin 2 tbsp PO QID PRN 07/21/20 07/21/20 History hydrocodone-acetaminophen 1 tablet PO BID PRN 07/21/20 07/21/20 History loratadine 10 mg PO DAILY 07/21/20 07/21/20 History omeprazole 20 mg PO DAILY 07/21/20 07/21/20 History Laboratory Tests 07/22/20 07/22/20 07/23/20 17:13 21:47 08:20 POC Capillary Glucose 175 mg/dl H mg/dl 154 mg/dl H mg/dl 144 mg/dl H mg/dl (65-105) (65-105) (65-105) 07/23/20 12:51 POC Capillary Glucose 147 mg/dl H mg/dl (65-105) Patient hx anesthesia problems: none Family hx anesthesia problems: none PMFSH Past Medical History Medical History (Updated 07/23/20 @ 09:51 by Medhat Portillo MD) Anemia Cerebrovascular accident (09/2012) Residual right hemiparesis. Chronic kidney disease Chronic kidney disease, stage 3, mod decreased GFR Chronic obstructive pulmonary disease Coronary artery disease History [place] and stents x4. Diverticulitis Epistaxis GI bleed Hyperlipidemia Hypertension [place]ena Osteoarthritis Pulmonary embolism Rheumatoid arthritis Type II diabetes mellitus Surgical History Surgical History (Updated 07/21/20 @ 14:37 by Indu Armendariz PA-C) History of appendectomy History of bilateral cataract extraction History of cardiac catheterization Stent x4. History of cholecystectomy History of left inguinal hernia repair History of left knee replacement History of mastoidectomy History of myringoplasty History of right hip replacement Family History Family History (Updated 07/21/20 @ 14:38 by Indu Armendariz PA-C) Father Acute myocardial infarction Mother Hypertension Sibling Pancreatic cancer Social History Social History (Updated 07/21/20 @ 15:04 by Indu Armendariz PA-C) Social History: The patient is and lives with his in [place]. Mainly wheelchair-bound but does use a walker to get up to the bathroom. [employer] . 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
[2020-07-23 17:40] LABS: Glucose Point of Care 127 mg/dl (65-105)
[2020-07-23] MEDS: GABAPENTIN 100 MG CAPSULE PO (20:23)
[2020-07-23 20:45] LABS: Glucose Point of Care 241 mg/dl (65-105)
[2020-07-24] VITALS (10 sets, daily range): BP systolic 119–196; BP diastolic 67–86; PULSE 55–70; RESP 16–18; TEMP 35.9–36.6; O2SAT 94–98
[2020-07-24 08:48] LABS: Glucose Point of Care 167 mg/dl (65-105)
[2020-07-24] MEDS: atenoloL 50 MG TABLET PO (09:06)
[2020-07-24] MEDS: DOCUSATE SODIUM 100 MG CAPSULE PO (09:06)
[2020-07-24 09:07] LABS: Basophils Percent Auto 0.3 % (0.2-1.2); Eosinophils Absolute Auto 0.2 K/mm3 (0-0.3); Eosinophils Percent Auto 1.4 % (0-4.4); Hematocrit 41.5 % (42.0-52.0); Hemoglobin 13.7 g/dL (14.0-18.0); Immature Granulocyte Absolute 0.06 K/mm3 (0.00-0.031); Immature Granulocyte Percent A 0.6 % (0-0.5); Lymphocytes Absolute Auto 1.55 K/mm3 (0.9-3.2); Lymphocytes Percent Auto 14.9 % (18.3-44.2); Mean Corpuscular Hemoglobin 31.1 pg (26-34); Mean Corpuscular Volume 94.1 fl (80-100); Mean Platelet Volume 9.3 fl (7.4-10.4); Monocytes Absolute Auto 0.5 K/mm3 (0.1-0.6); Monocytes Percent Auto 4.8 % (2.6-8.5); Neutrophils Absolute Auto 8.1 K/mm3 (1.3-6.7); Platelet Count Result 199 k/mm3 (150-375); Red Blood Count 4.41 M/mm3 (4.6-6.20); Red Cell Distribution Width 13.9 % (11.5-14.5); White Blood Count 10.4 K/mm3 (4.5-10.0)
[2020-07-24] MEDS: FLUTICASONE PROPIONATE 0.05% NA SPR 16 GM BTL (*BKC) 1 SPRAY NASAL (09:07)
[2020-07-24] MEDS: MICONAZOLE NITRATE 2% CREAM 30 GM TUBE 1 APPLIC TOPICAL ×2 (09:07→20:42)
[2020-07-24] MEDS: amLODIPine BESYLATE 2.5 MG TABLET PO (09:07)
[2020-07-24] MEDS: allopurinoL 100 MG TABLET PO (09:07)
[2020-07-24] MEDS: FOLIC ACID 1 MG TABLET PO (09:07)
[2020-07-24] MEDS: LORATADINE 10 MG TABLET PO (09:07)
[2020-07-24] MEDS: BACLOFEN 10 MG TABLET PO ×3 (09:07→17:43)
[2020-07-24] MEDS: PANTOPRAZOLE 40 MG TABLET PO (09:07)
[2020-07-24 09:18] LABS: Alanine Aminotransferase 197 U/L (4-50); Albumin Level 3.7 g/dL (3.5-5.1); Alkaline Phosphatase 395 U/L (38-126); Anion Gap 11 mmol/L (8-16); Aspartate Amino Transferase 100 U/L (17-59); Bilirubin,Total 1.2 mg/dL (0.2-1.3); Blood Urea Nitrogen 25 mg/dL (9-20); Calcium 9.4 mg/dL (8.4-10.2); Carbon Dioxide 22 mmol/L (22-30); Chloride 111 mmol/L (98-107); Estimated CRCL calculation 28 ml/min; Estimated Glomerular Filt Rate 34; Glucose 176 mg/dL (75-110); Potassium 4.3 mmol/L (3.4-5.0); Sodium 144 mmol/L (137-145)
--- NOTE | 2020-07-24 11:32 | WPDANESPN ---
Anes - Prog Note Post-Op Date/Time: 07/24/20 11:32 Cardiovascular status: normal Respiratory status: normal Airway patency: baseline Mental status: baseline Post-Op hydration status: normal Vital Signs: Last Vital Signs Temp 36.4 C 07/24/20 06:00 Pulse 66 07/24/20 09:06 Resp 16 07/24/20 08:36 BP 196/86 H 07/24/20 08:36 Pulse Ox 98 07/24/20 08:36 Pain Score (VAS): 0 I/O: Intake & Output 07/23/20 07/24/20 07/24/20 23:59 07:59 15:59 Intake Total 250 200 120 Output Total 100 Balance 150 200 120 Laboratory Tests 07/24/20 08:50 07/24/20 08:50 07/23/20 07/23/20 07/23/20 12:51 17:38 20:22 WBC RBC Hgb Hct MCV MCH MCHC RDW Plt Count MPV Immature Gran % (Auto) Neut % (Auto) Lymph % (Auto) [place] % (Auto) Eos % (Auto) Baso % (Auto) Lymph # (Auto) [place] # (Auto) Eos # (Auto) Baso # (Auto) Abs Immat Gran (auto) Absolute Neuts (auto) Absolute Nucleated RBC Nucleated RBC % Sodium Potassium Chloride Carbon Dioxide Anion Gap BUN Creatinine Estim Creat Clear Calc Estimated GFR Glucose POC Capillary Glucose 147 H 127 H 241 H Calcium Total Bilirubin AST ALT Alkaline Phosphatase Total Protein Albumin 07/24/20 07/24/20 07/24/20 08:29 08:50 08:50 WBC 10.4 H RBC 4.41 L Hgb 13.7 L Hct 41.5 L MCV 94.1 MCH 31.1 MCHC 33.0 RDW 13.9 Plt Count 199 MPV 9.3 Immature Gran % (Auto) 0.6 H Neut % (Auto) 78.0 H Lymph % (Auto) 14.9 L [place] % (Auto) 4.8 Eos % (Auto) 1.4 Baso % (Auto) 0.3 Lymph # (Auto) 1.55 [place] # (Auto) 0.5 Eos # (Auto) 0.2 Baso # (Auto) 0.0 Abs Immat Gran (auto) 0.06 H Absolute Neuts (auto) 8.1 H Absolute Nucleated RBC 0.0 Nucleated RBC % 0.0 Sodium 144 Potassium 4.3 Chloride 111 H Carbon Dioxide 22 Anion Gap 11 BUN 25 H Creatinine 1.90 H Estim Creat Clear Calc 28 Estimated GFR 34 L Glucose 176 H POC Capillary Glucose 167 H Calcium 9.4 Total Bilirubin 1.2 AST 100 H ALT 197 H Alkaline Phosphatase 395 H Total Protein 8.0 Albumin 3.7 Post-procedural complaints: none Patient Feedback: Patient satisfied with anesthetic care.
--- NOTE | 2020-07-24 12:55 | PCSTNOTE ---
Please refer to the Modified Barium Swallow Evaluation in the EMR.
[2020-07-24 13:27] LABS: Glucose Point of Care 211 mg/dl (65-105)
[2020-07-24] MEDS: INSULIN ASPART (*BKC) 100 UNITS/ML SUB-Q (13:28)
--- NOTE | 2020-07-24 17:07 | PM.IMPN ---
Progress Note: A&P Assessment and Plan (1) GI bleed: Code(s): K92.2 - Gastrointestinal hemorrhage, unspecified Status: Acute Assessment and Plan: Patient reports dark stools for the past 3 days and has a history of bleeding ulcers in 2012. IV Protonix b.i.d. Hold aspirin, clopidogrel, and diclofenac. watch hb Dr. Jerome (Gastroenterology) has been consulted keep npo from [facility] for scope today (2) Elevated LFTs: Code(s): R79.89 - Other specified abnormal findings of blood chemistry Status: Acute Assessment and Plan: Patient has been told this in the past and has several upcoming appointments at the [facility]. No acute issues on CT of the abdomen and pelvis. (3) Epistaxis: Code(s): R04.0 - Epistaxis Status: Acute Assessment and Plan: Rhino rocket currently in the right naris. pt will need ent consult for removal (4) Normocytic anemia: Code(s): D64.9 - Anemia, unspecified Status: Acute Assessment and Plan: Hemoglobin to be watched (5) Type II diabetes mellitus: Code(s): E11.9 - Type 2 diabetes mellitus without complications Status: Chronic Assessment and Plan: Initiate sliding scale insulin, Accu-Cheks, and hypoglycemic protocol. Check hemoglobin A1c. (6) Chronic kidney disease: Code(s): N18.9 - Chronic kidney disease, unspecified Status: Chronic Assessment and Plan: Patient has chronic kidney disease. continue to watch, creat is 2.4 (7) Hypertension: Code(s): I10 - Essential (primary) hypertension Status: Chronic Assessment and Plan: Blood pressures were reviewed and they are stable. Continue antihypertensives and monitor blood pressures daily. (8) Chronic obstructive pulmonary disease: Code(s): J44.9 - Chronic obstructive pulmonary disease, unspecified Status: Chronic Assessment and Plan: . Continue home respiratory regimen. (9) Coronary artery disease: Code(s): I25.10 - Atherosclerotic heart disease of [place] coronary artery without angina pectoris Status: Chronic Assessment and Plan: Patient with history of [place] and stents 13 years ago (per patient). Aspirin and clopidogrel on hold given GI bleed. Statin on hold given transaminitis. Continue beta-maurilio. 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 Initiate fall precautions. Aspirin and Plavix on hold given GI bleed. (11) Rheumatoid arthritis: Code(s): M06.9 - Rheumatoid arthritis, unspecified Status: Chronic Assessment and Plan: Golimumab on hold given transaminitis. Subjective Date/time seen: 07/24/20 17:07 Interval history: 80-year-old male with history bleeding ulcers, stroke, coronary artery disease, type 2 diabetes mellitus, COPD, hypertension, chronic kidney disease, anemia, and rheumatoid arthritis who presented to the emergency department earlier today via EMS from home for evaluation of dark stools. Pt for scope today. Seen by GI MD. Pt has history of ulcer and is on Plavix blood thinner. Pt has history of 4 stents, old stroke and DU, DM, and HTN. Pt had stroke like symptoms had urgent CT scan which was negative for stroke. Review of Systems Review of Systems: All systems reviewed & are unremarkable except as noted in HPI and below Exam Narrative: Exam Narrative: General: Well-developed elderly male. Respiratory: Lungs are clear to auscultation bilaterally. Cardiovascular: Regular rate and rhythm with S1-S2. Gastrointestinal: Abdomen is soft, nontender with positive bowel sounds. Skin: Warm and dry. Scattered bruising on the upper extremities, mainly on the right. Extremities: No cyanosis, clubbing, or edema. Radial
[2020-07-24 17:42] LABS: Glucose Point of Care 177 mg/dl (65-105)
[2020-07-24 19:22] LABS: Haptoglobin 318 mg/dL (43-212)
[2020-07-25 02:10] LABS: Glucose Point of Care 165 mg/dl (65-105)
[2020-07-25 06:00] VITALS: BP 146/85; PULSE 61; RESP 18; TEMP 35.8; O2SAT 96
[2020-07-25 08:41] LABS: Glucose Point of Care 156 mg/dl (65-105)
--- NOTE | 2020-07-25 09:16 | PM.DS ---
DS: Admitting Diagnosis Admitting Diagnosis Admitting Diagnosis: Dark stools. DS: Discharge Diagnosis Discharge Diagnosis (1) GI bleed: Code(s): K92.2 - Gastrointestinal hemorrhage, unspecified Status: Acute Assessment and Plan: Patient reports dark stools for the past 3 days and has a history of bleeding ulcers in 2012. IV Protonix b.i.d. Hold aspirin, clopidogrel, and diclofenac. watch hb Dr. Jerome (Gastroenterology) has been consulted pt had scope showing gastritis stop diclofenac can continue asa and clopidogrel (2) Elevated LFTs: Code(s): R79.89 - Other specified abnormal findings of blood chemistry Status: Acute Assessment and Plan: Patient has been told this in the past and has several upcoming appointments at the [facility]. No acute issues on CT of the abdomen and pelvis. (3) Epistaxis: Code(s): R04.0 - Epistaxis Status: Acute Assessment and Plan: Rhino rocket currently in the right naris.removed by ent in hospital. (4) Normocytic anemia: Code(s): D64.9 - Anemia, unspecified Status: Acute Assessment and Plan: Hemoglobin to be watched stable at 13 on discharge (5) Type II diabetes mellitus: Code(s): E11.9 - Type 2 diabetes mellitus without complications Status: Chronic Assessment and Plan: continue home regime, hbaic is 7 . (6) Chronic kidney disease: Code(s): N18.9 - Chronic kidney disease, unspecified Status: Chronic Assessment and Plan: Patient has chronic kidney disease. creat is 1.9 on discharge (7) Hypertension: Code(s): I10 - Essential (primary) hypertension Status: Chronic Assessment and Plan: Blood pressures were reviewed and they are stable. Continue antihypertensives and monitor blood pressures daily. (8) Chronic obstructive pulmonary disease: Code(s): J44.9 - Chronic obstructive pulmonary disease, unspecified Status: Chronic Assessment and Plan: . Continue home respiratory regimen. (9) Coronary artery disease: Code(s): I25.10 - Atherosclerotic heart disease of [place] coronary artery without angina pectoris Status: Chronic Assessment and Plan: Patient with history of [place] and stents 13 years ago (per patient). Aspirin and clopidogrel on hold given GI bleed. Statin on hold given transaminitis. Continue beta-maurilio. 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 pt had ct head as he complained of stroke symptoms ct scan showed no new stroke. pt had swallow test in hospital which adviced to continue soft and bite sized diet at home (11) Rheumatoid arthritis: Code(s): M06.9 - Rheumatoid arthritis, unspecified Status: Chronic Assessment and Plan: Golimumab on hold given transaminitis. DS: Summary Hospital Course Hospital Course: 80-year-old male with history bleeding ulcers, stroke, coronary artery disease, type 2 diabetes mellitus, COPD, hypertension, chronic kidney disease, anemia, and rheumatoid arthritis who presented to the emergency department earlier today via EMS from home for evaluation of dark stools. Pt for scope today. Seen by GI MD. Pt has history of ulcer and is on Plavix blood thinner. Pt has history of 4 stents, old stroke and DU, DM, and HTN. Pt had stroke like symptoms had urgent CT scan which was negative for stroke. Time Spent with Patient Time attestation: Total time spent providing and/or coordinating discharge services: Exam Narrative: Exam Narrative: General: Well-developed elderly male. Respiratory: Lungs are clear to auscultation bilaterally. Cardiovascular: Regular rate and rhythm with S1-S2. Gastrointestinal: Abdomen is soft, nontender with posit
[2020-07-25] MEDS: MICONAZOLE NITRATE 2% CREAM 30 GM TUBE 1 APPLIC TOPICAL (09:22)
[2020-07-25] MEDS: BACLOFEN 10 MG TABLET PO (09:22)
[2020-07-25] MEDS: amLODIPine BESYLATE 2.5 MG TABLET PO (09:22)
[2020-07-25 09:23] VITALS: PULSE 65
[2020-07-25] MEDS: DOCUSATE SODIUM 100 MG CAPSULE PO (09:23)
[2020-07-25] MEDS: atenoloL 50 MG TABLET PO (09:23)
[2020-07-25] MEDS: allopurinoL 100 MG TABLET PO (09:23)
[2020-07-25] MEDS: PANTOPRAZOLE 40 MG TABLET PO (09:25)
[2020-07-25] MEDS: FOLIC ACID 1 MG TABLET PO (09:25)
[2020-07-25] MEDS: LORATADINE 10 MG TABLET PO (09:25)
== END 2020-07-25 10:39 | disposition home or self-care (01) | DRG 150 ==
LOC: ANHED 13:17 → ANH3MEDSUR 13:39
PROVIDERS: Family Medicine; Internal Medicine Gastroenterology; Physician Assistant; Admitting Provider Internal Medicine; Emergency Provider Emergency Medicine; Visit Provider Internal Medicine
PROC: 0DJ08ZZ Inspection of Upper Intestinal Tract, Via Natural or Artificial Opening Endoscopic (ICD-10-PCS; CPT 43235; principal; 2020-07-23 14:30)
DX: R04.0 Epistaxis (principal); J15.9 Unspecified bacterial pneumonia; I69.354 Hemiplegia and hemiparesis following cerebral infarction affecting left non-dominant side; K92.1 Melena; K29.70 Gastritis, unspecified, without bleeding; Z87.11 Personal history of peptic ulcer disease; I25.2 Old myocardial infarction; Z79.82 Long term (current) use of aspirin; Z79.02 Long term (current) use of antithrombotics/antiplatelets; I12.9 Hypertensive chronic kidney disease with stage 1 through stage 4 chronic kidney disease, or unspecified chronic kidney disease; E11.22 Type 2 diabetes mellitus with diabetic chronic kidney disease; E78.5 Hyperlipidemia, unspecified; Z86.711 Personal history of pulmonary embolism; M06.9 Rheumatoid arthritis, unspecified; D64.9 Anemia, unspecified; I25.10 Atherosclerotic heart disease of native coronary artery without angina pectoris; Z95.5 Presence of coronary angioplasty implant and graft; M19.90 Unspecified osteoarthritis, unspecified site; Z99.3 Dependence on wheelchair; Z87.891 Personal history of nicotine dependence; R79.89 Other specified abnormal findings of blood chemistry; N18.30 Chronic kidney disease, stage 3 unspecified; J43.9 Emphysema, unspecified
CPT/HCPCS: 36415; 70450; 74176; 80053; 80074; 80307; 82550; 82607; 82728; 82746; 82948; 83010; 83036; 83540; 83550; 83605; 83615; 83690; 83735; 84443; 84466; 85014; 85018; 85025; 85027; 85055; 85610; 85730; 86850; 86880; 86900; 86901; 92611; 94640; 96361; 96374; 96376; 99285; A9270; C9113; G0378; J1815; J2704; J7040; J7120

== ENCOUNTER 2020-07-25 18:53 | Emergency (ER) | payer MEDICARE, OTHER, SELFPAY ==
--- NOTE | ~2020-07-25 | XR_ITS ---
XR chest 2V DATE: 07/25/2020 22:39 INDICATION: Cough and shortness of breath. Syncope. TECHNIQUE: AP and lateral views COMPARISON: 05/05/2018 AP and lateral chest FINDINGS: Heart size is normal. Coronary artery stent is suggested. No hilar or mediastinal enlargement. Minimal aortic unfolding. No pulmonary infiltrate or consolidation, pleural effusion or pulmonary vascular congestion or pneumo thorax is detected. Status post cholecystectomy Diffuse osteopenia IMPRESSION: No active cardiopulmonary disease Reviewed, dictated and finalized at location A.
[2020-07-25 19:43] VITALS: BP 109/69; PULSE 70; RESP 14; TEMP 36.4; O2SAT 94
--- NOTE | 2020-07-25 19:47 | ECG_ITS ---
Measurements Intervals [place] Rate: 68 P: 55 NE: 178 QRS: 27 QRSD: 80 T: 31 QT: 394 QTc: 421 Interpretive Statements SINUS RHYTHM LOW QRS VOLTAGE IN PRECORDIAL LEADS BASELINE ARTIFACT- I, III, AVR, AVL, AVF, V1-V6 BORDERLINE ECG Electronically Signed On 07-25-2020 21:29:44 CDT by Williams Maxwell D.O.
[2020-07-25 19:52] LABS: Glucose Point of Care 199 mg/dl (65-105)
[2020-07-25 20:14] LABS: Basophils Absolute Auto 0.1 K/mm3 (0.0-0.1); Basophils Percent Auto 0.5 % (0.2-1.2); Eosinophils Absolute Auto 0.2 K/mm3 (0-0.3); Eosinophils Percent Auto 1.4 % (0-4.4); Hematocrit 43.8 % (42.0-52.0); Immature Granulocyte Absolute 0.17 K/mm3 (0.00-0.031); Immature Granulocyte Percent A 1.2 % (0-0.5); Lymphocytes Absolute Auto 1.58 K/mm3 (0.9-3.2); Lymphocytes Percent Auto 11.5 % (18.3-44.2); Mean Corpuscular Hemoglobin 30.8 pg (26-34); Mean Corpuscular Volume 96.3 fl (80-100); Mean Platelet Volume 9.4 fl (7.4-10.4); Monocytes Absolute Auto 0.8 K/mm3 (0.1-0.6); Monocytes Percent Auto 6.1 % (2.6-8.5); Neutrophils Absolute Auto 10.9 K/mm3 (1.3-6.7); Neutrophils Percent Auto 79.3 % (45.5-73.1); Platelet Count Result 235 k/mm3 (150-375); Red Blood Count 4.55 M/mm3 (4.6-6.20); Red Cell Distribution Width 14.3 % (11.5-14.5); White Blood Count 13.7 K/mm3 (4.5-10.0)
[2020-07-25 20:24] LABS: Anion Gap 12 mmol/L (8-16); Blood Urea Nitrogen 32 mg/dL (9-20); Calcium 9.6 mg/dL (8.4-10.2); Carbon Dioxide 21 mmol/L (22-30); Chloride 107 mmol/L (98-107); Estimated CRCL calculation 24 ml/min; Estimated Glomerular Filt Rate 27; Glucose 187 mg/dL (75-110); Potassium 4.8 mmol/L (3.4-5.0); Sodium 140 mmol/L (137-145)
--- NOTE | 2020-07-25 21:00 | PC.NURSE ---
pt. requesting to be moved closer to the triage desk. Pt. states So they can get you when I pass out again.
[2020-07-25 21:03] VITALS: BP 129/80; PULSE 70; RESP 15; O2SAT 96
[2020-07-25 22:10] VITALS: BP 122/84; PULSE 67; RESP 12; TEMP 36.9; O2SAT 98
[2020-07-25 23:10] VITALS: BP 114/77; PULSE 63; RESP 14; O2SAT 96
--- NOTE | 2020-07-26 00:12 | ED.DIZZY ---
HPI - Dizziness General Chief Complaint: Syncope Stated Complaint: syncopal episode Time Seen by Provider: 07/25/20 22:00 Source: patient and family Mode of arrival: EMS Limitations: no limitations History of Present Illness HPI Narrative: 80-year-old male He has a history of old right-sided hemiparesis but is able to get around a little bit using a wheeled walker at his home along with the assistance of a caregiver He was just released from the hospital about 12 hours ago after having been hospitalized for about 3 days with guaiac positive stools He had a endoscopy showing only gastritis and his hemoglobins were rock solid After going home he was assisted to the bathroom as per his usual habit Also per usual he was straining at stool due to his often experience constipation He felt kind of weak and diaphoretic and lightheaded after that and when he was tried to assist back to his chair his one good leg would not hold him any sort of crumpled down to the ground EMS was summoned to bring him to the hospital where he reports that now he feels completely normal like he always does Related Data Home Medications Medication Instructions Recorded Confirmed Aspir-81 81 mg PO DAILY 07/21/20 07/21/20 Calcium + Vitamin D 1 tablet PO BID 07/21/20 07/21/20 albuterol 90 mcg INHALATION QID PRN 07/21/20 07/21/20 allopurinol 100 mg PO DAILY 07/21/20 07/21/20 alogliptin 12.5 mg PO DAILY 07/21/20 07/21/20 amlodipine 2.5 mg PO DAILY 07/21/20 07/21/20 atenolol 50 mg PO DAILY 07/21/20 07/21/20 atorvastatin 40 mg PO HS 07/21/20 07/21/20 baclofen 10 mg PO TID 07/21/20 07/21/20 budesonide-formoterol 2 puff INHALATION BID 07/21/20 07/21/20 clopidogrel 75 mg PO DAILY 07/21/20 07/21/20 clotrimazole 1 applic TOPICAL BID 07/21/20 07/21/20 docusate sodium 100 mg PO DAILY 07/21/20 07/21/20 fluticasone propionate 1 spray INTRANASAL DAILY 07/21/20 07/21/20 folic acid 1 mg PO DAILY 07/21/20 07/21/20 gabapentin 100 mg PO HS 07/21/20 07/21/20 golimumab 50 mg SUBCUT MONTHLY 07/21/20 07/21/20 guaifenesin 2 tbsp PO QID PRN 07/21/20 07/21/20 hydrocodone-acetaminophen 1 tablet PO BID PRN 07/21/20 07/21/20 loratadine 10 mg PO DAILY 07/21/20 07/21/20 omeprazole 20 mg PO DAILY 07/21/20 07/21/20 Allergies Allergy/AdvReac Type Severity Reaction Status Date / Time meperidine Allergy Severe SEVERE N/V Verified 07/23/20 12:45 WHILE IN HOSP AND AFTER DISCHARGE AT HOME S/P GB KIP Inhibitors Allergy Unknown Unknown Verified 07/23/20 12:45 codeine AdvReac Mild N/V Verified 07/23/20 12:45 Review of Systems Review of Systems: All systems reviewed & are unremarkable except as noted in HPI and below Constitutional: Constitutional: Reports no additional constitutional complaints, Denies chills, Reports fatigue, Denies fever(s), Denies headache(s) and Reports weakness Eyes: Eyes: Reports no additional eye complaints and Denies change in vision ENT: Denies headache(s) and Denies sore throat Cardiovascular: Cardiovascular: Denies chest pain and Denies dyspnea Respiratory: Respiratory: Denies cough and Denies dyspnea Gastrointestinal: Gastrointestinal: Denies abdominal pain, Denies bloating, Reports constipation, Denies diarrhea and Denies vomiting Genitourinary: Genitourinary: Denies dysuria and Denies urinary frequency Musculoskeletal: Musculoskeletal: Denies deformity, Denies arthralgias, Denies joint swelling and Denies numbness Integumentary/Breasts: Skin/Breast: Denies rash and Denies wounds Neurologic: Denies headache(s), Reports focal weakness, Denies numbness and Reports weakness Psychiatric: Psychiatric: Reports no additional psychiatric complaints Endocrine: Endocrine: Reports no additional endocrine complaints Hematologic/Lymphatic: Hematologic/Lymphatic: Reports no additional hematologic/lymphatic complaints Allergic/Immunologic: Allergic/Immunologic: Reports no additional allergic/immunologic complaints [facility]
[2020-07-26 00:33] LABS: Add Urine Microscopic? YES; Appearance Urine Cloudy (Clear); Bilirubin Urine Negative (Negative); Blood Urine 3+ (Negative); Color Urine Amber (Yellow); Glucose Urine UA Negative (Negative); Ketones Urine Negative (Negative); Leukocyte Esterase Ur 3+ LEU/UL (Negative); Mucus Urine Rare /lpf; Nitrate Urine Negative (Negative); Protein Urine 2+ mg/dL (Negative); RBC Urine >75 /hpf (0-2); Specific Grav Ur 1.018 (1.001-1.035); Squamous Epithelial Cell Urine Rare /hpf (Few); Urobilinogen Urine Negative mg/dL (<2.0); WBC Clumps Urine Present /HPF; WBC Urine >75 /hpf
[2020-07-26 00:45] VITALS: BP 119/77; PULSE 66; RESP 19; O2SAT 96
== END 2020-07-26 00:45 | disposition home or self-care (01) ==
PROVIDERS: Emergency Medicine; Emergency Provider Emergency Medicine
DX: R55 Syncope and collapse (principal); I69.951 Hemiplegia and hemiparesis following unspecified cerebrovascular disease affecting right dominant side; I12.9 Hypertensive chronic kidney disease with stage 1 through stage 4 chronic kidney disease, or unspecified chronic kidney disease; N18.30 Chronic kidney disease, stage 3 unspecified; I25.2 Old myocardial infarction; E11.22 Type 2 diabetes mellitus with diabetic chronic kidney disease; E78.5 Hyperlipidemia, unspecified; M06.9 Rheumatoid arthritis, unspecified; M19.90 Unspecified osteoarthritis, unspecified site; Z86.711 Personal history of pulmonary embolism; Z95.5 Presence of coronary angioplasty implant and graft; Z96.652 Presence of left artificial knee joint; Z98.42 Cataract extraction status, left eye; Z98.41 Cataract extraction status, right eye; Z96.641 Presence of right artificial hip joint; Z87.891 Personal history of nicotine dependence; R94.31 Abnormal electrocardiogram [ECG] [EKG]
CPT/HCPCS: 36415; 71046; 80048; 81001; 82948; 85025; 87077; 87086; 87088; 87186; 93005; 99284